=== PATIENT | female | born 1950 | race African-American/Black ===

== ENCOUNTER → 2016-11-21 | Outpatient (CLI) | payer OTHER ==
[~2016-11-21] MED LIST: ENAL20TA70; FURO40TA4; METF-316
[2016-11-21 12:57] LABS: Albumin 3.3 g/dL (3.4-5.0); BUN/Creatinine Ratio 8.2; Bilirubin, Total 0.2 mg/dL (0.2-1.0); Calcium 8.6 mg/dL (8.5-10.1); Potassium 4.6 mmol/L (3.5-5.1); Total Protein 8.5 g/dL (6.4-8.2)
== END | disposition home or self-care (01) ==
LOC: LAB 09:54
PROVIDERS: ATTEND Internal Medicine Cardiovascular Disease
DX: E78.00 Pure hypercholesterolemia, unspecified (principal); I10 Essential (primary) hypertension; E11.9 Type 2 diabetes mellitus without complications
CPT/HCPCS: 36415; 80053; 80061; 83036

== ENCOUNTER 2017-01-01 21:03 | Observation (INO) | payer MEDICARE, MEDICAID ==
[~2017-01-01] VITALS: Ht 170.2 cm; Wt 115.2 kg
[~2017-01-01 21:03] MED LIST changes: -METF-316; +METF-372
[2017-01-01 23:18] LABS: Basophils # (auto) 0.1 uL; Basophils % (auto) 0.8 % (0.0-2.0); CONDITION Y; DEFINITIVE SEE PRINTOUT; Eosinophils # (auto) 0.3 uL; Eosinophils % (auto) 2.6 % (0.0-7.0); Hematocrit 42.7 % (36.0-46.0); Hemoglobin 13.7 g/dL (12.2-16.2); Lymphocytes # (auto) 3.2 uL; Lymphocytes % (auto) 32.3 % (10.0-50.0); Mean Corpuscular Hemoglobin 25.7 pg (28.0-32.0); Mean Corpuscular Hgb Conc. 32.2 g/dL (32.0-36.0); Mean Corpuscular Volume 79.9 fL (80.0-100.0); Mean Platelet Volume 8.8 fL (7.4-10.4); Monocytes # (auto) 0.6 uL; Monocytes % (auto) 6.5 % (0.0-12.0); Neutrophils # (auto) 5.7 uL; Neutrophils % (auto) 57.8 % (37.0-80.0); Platelet Count (auto) 266 10^3/uL (140-450); Red Cell Distribution Width 16.3 % (11.6-16.0); White Blood Cell 9.8 10^3/uL (4.4-10.8)
[2017-01-01 23:18] LABS: Urine RBC None Seen /hpf (0 - 4)
[2017-01-01 23:32] LABS: Urine Bilirubin Negative (Negative); Urine Blood Negative /uL (Negative); Urine Color Yellow (Yellow); Urine Ketone Negative (Negative); Urine Mucus FEW (None Seen); Urine Nitrite Negative (Negative); Urine Squamous Epithelial Cell FEW /hpf (<5); Urine Urobilinogen Normal (Negative); Urine pH 5.5 (5.0-8.0)
[2017-01-01 23:33] LABS: INR 0.99 (0.9-1.15); Partial Thromboplastin Time 25.4 sec (22.64-33.71); Prothrombin Time 10.8 sec (9.37-12.3)
[2017-01-01 23:39] LABS: Albumin 3.1 g/dL (3.4-5.0); Anion Gap 9 (5-15); Aspartate Aminotransferase 14 U/L (15-37); BUN/Creatinine Ratio 13.6; Blood Urea Nitrogen 12 mg/dL (7-18); Calcium 8.7 mg/dL (8.5-10.1); Carbon Dioxide 24 mmol/L (21-32); Chloride 107 mmol/L (98-107); GFR African American 83 mL/min; GFR Non-African American 69 mL/min; Glucose 261 mg/dL (74-106); Magnesium 2.1 mg/dL (1.6-2.6); Potassium 4.5 mmol/L (3.5-5.1); Sodium 140 mmol/L (136-145)
[2017-01-01 23:48] LABS: Alkaline Phosphatase 122 U/L (45-117); Bilirubin, Total 0.2 mg/dL (0.2-1.0); Total Protein 7.9 g/dL (6.4-8.2)
[2017-01-02] MEDS ORDERED: SODIUM CHLORIDE 0.9% 1,000 ML IV ONE (05:15)
[2017-01-02 06:02] LABS: Urine Glucose 4+ mg/dL (Normal)
[2017-01-02] MEDS ORDERED: InsuLIN REG 1unit/0.01ml Soln (100units/ml) IV ONE (08:00)
[2017-01-02] MEDS ORDERED: KETOROLAC TROMETH 30 MG/ML 1ML VIAL IV ONE (08:00)
[2017-01-02 09:07] LABS: B-Type Natriuretic Peptide 38.93 pg/mL (0-100)
[2017-01-02 09:12] LABS: Temperature: 23.9 C (20.0-25.0)
[2017-01-02 11:09] VITALS: BP 121/49
== END 2017-01-02 12:24 | disposition home or self-care (01) | DRG 605 ==
LOC: ER 21:51 → OVERFLOW 01-02 08:06 → ER 01-02 12:12
PROVIDERS: ADMIT Emergency Medicine; ATTEND Emergency Medicine
DX: T14.8 Other injury of unspecified body region (principal); X58.XXXA Exposure to other specified factors, initial encounter; Y93.89 Activity, other specified; Y92.89 Other specified places as the place of occurrence of the external cause; Y99.8 Other external cause status; E11.65 Type 2 diabetes mellitus with hyperglycemia; J45.909 Unspecified asthma, uncomplicated; I10 Essential (primary) hypertension; Z82.49 Family history of ischemic heart disease and other diseases of the circulatory system
CPT/HCPCS: 36415; 80053; 81001; 82962; 83735; 83880; 84484; 85025; 85610; 85730; 93005; 96361; 96374; 96375; 99285; G0378; J1815; J1885; J7030

== ENCOUNTER → 2017-05-26 | Outpatient (CLI) | payer MEDICARE, MEDICAID ==
[~2017-05-26] MED LIST changes: +DIPYRIDAMOLE (5MG/ML) 10 ML VIAL IV ONE; +DIPYRIDAMOLE 60 MG in D5W 5% 50 ML IV SCH
== END | disposition home or self-care (01) ==
LOC: Rad HDHVI 08:51
PROVIDERS: ATTEND Internal Medicine Cardiovascular Disease
DX: I25.10 Atherosclerotic heart disease of native coronary artery without angina pectoris (principal); J44.9 Chronic obstructive pulmonary disease, unspecified; R07.89 Other chest pain; I10 Essential (primary) hypertension; M19.90 Unspecified osteoarthritis, unspecified site; E11.9 Type 2 diabetes mellitus without complications; M25.561 Pain in right knee; M25.562 Pain in left knee; J45.909 Unspecified asthma, uncomplicated; R63.8 Other symptoms and signs concerning food and fluid intake; F41.9 Anxiety disorder, unspecified; Z86.19 Personal history of other infectious and parasitic diseases; J32.9 Chronic sinusitis, unspecified
CPT/HCPCS: 78452; 93005; 93306; 96374; 96375; A9500; J1245

== ENCOUNTER → 2018-01-01 | Outpatient (CLI) | payer MEDICARE, MEDICAID ==
[~2018-01-01] MED LIST changes: -DIPYRIDAMOLE (5MG/ML) 10 ML VIAL IV ONE; -DIPYRIDAMOLE 60 MG in D5W 5% 50 ML IV SCH
[2018-01-01 16:13] LABS: Basophils # (auto) 0.1 uL; Basophils % (auto) 0.7 % (0.0-2.0); Eosinophils # (auto) 0.2 uL; Hemoglobin 13.8 g/dL (12.2-16.2); Mean Corpuscular Hgb Conc. 32.8 g/dL (32.0-36.0); Monocytes # (auto) 0.6 uL; Red Blood Cells 5.19 10^6/uL (4.0-5.20)
[2018-01-01 16:15] LABS: Eosinophils % (auto) 2.6 % (0.0-7.0); Hematocrit 42.1 % (36.0-46.0); Lymphocytes # (auto) 2.3 uL; Lymphocytes % (auto) 28.9 % (10.0-50.0); Mean Corpuscular Hemoglobin 26.6 pg (28.0-32.0); Monocytes % (auto) 7.3 % (0.0-12.0); Neutrophils # (auto) 4.9 uL; Neutrophils % (auto) 60.5 % (37.0-80.0); Nucleated Red Blood Cells % 0.6 %; Platelet Count (auto) 270 10^3/uL (140-450); White Blood Cell 8.1 10^3/uL (4.4-10.8)
[2018-01-01 16:17] LABS: BUN/Creatinine Ratio 7.6; Calcium 8.6 mg/dL (8.5-10.1); Potassium 3.7 mmol/L (3.5-5.1)
== END | disposition home or self-care (01) ==
LOC: LAB 11:28
PROVIDERS: ATTEND Internal Medicine
DX: I11.0 Hypertensive heart disease with heart failure (principal); I50.23 Acute on chronic systolic (congestive) heart failure; F41.9 Anxiety disorder, unspecified; I25.10 Atherosclerotic heart disease of native coronary artery without angina pectoris; J44.9 Chronic obstructive pulmonary disease, unspecified; E11.9 Type 2 diabetes mellitus without complications; E78.00 Pure hypercholesterolemia, unspecified; D64.9 Anemia, unspecified
CPT/HCPCS: 36415; 80048; 83880; 85025

== ENCOUNTER → 2018-07-09 | Outpatient (CLI) | payer MEDICARE, MEDICAID | END | disposition home or self-care (01) | LOC: Rad HDHVI 07:59 | PROVIDERS: ATTEND Internal Medicine Cardiovascular Disease | DX: I10 Essential (primary) hypertension (principal); J44.9 Chronic obstructive pulmonary disease, unspecified; E11.9 Type 2 diabetes mellitus without complications; E03.9 Hypothyroidism, unspecified | CPT/HCPCS: 93306 ==

== ENCOUNTER → 2018-07-14 | Outpatient (CLI) | payer MEDICARE, MEDICAID ==
[~2018-07-14] VITALS: Ht 170.2 cm; Wt 107.0 kg
[~2018-07-14] MED LIST changes: +ADENOSINE 90 MG in GIVE UN-DILUTED 0 ML IV ONE; +ADENOSINE 90 MG/30 ML INJ IV ONE
[2018-07-14 16:14] LABS: Albumin 3.2 g/dL (3.4-5.0); Calcium 8.7 mg/dL (8.5-10.1); Potassium 3.9 mmol/L (3.5-5.1)
[2018-07-14 16:19] LABS: BUN/Creatinine Ratio 14.7; Bilirubin, Total 0.2 mg/dL (0.2-1.0); Total Protein 8.3 g/dL (6.4-8.2)
[2018-07-14 16:22] LABS: Free T4 (Free Thyroxine) 1.04 ng/dL (0.89-1.76)
[2018-07-14 16:54] LABS: Eosinophils # (auto) 0.4 uL; Lymphocytes # (auto) 2.9 uL; Neutrophils # (auto) 5.3 uL; Nucleated Red Blood Cells % 0.1 %; Red Cell Distribution Width 16.2 % (11.8-14.3)
[2018-07-14 16:56] LABS: Basophils # (auto) 0.1 uL; Basophils % (auto) 0.7 % (0.0-2.0); Eosinophils % (auto) 4.3 % (0.0-7.0); Hematocrit 42.5 % (36.0-46.0); Hemoglobin 13.9 g/dL (12.2-16.2); Lymphocytes % (auto) 30.3 % (10.0-50.0); Mean Corpuscular Hemoglobin 26.4 pg (28.0-32.0); Mean Corpuscular Hgb Conc. 32.7 g/dL (32.0-36.0); Mean Corpuscular Volume 80.8 fL (80.0-100.0); Monocytes # (auto) 0.8 uL; Monocytes % (auto) 8.4 % (0.0-12.0); Neutrophils % (auto) 56.3 % (37.0-80.0); Platelet Count (auto) 244 10^3/uL (140-450); Red Blood Cells 5.25 10^6/uL (4.0-5.20); White Blood Cell 9.5 10^3/uL (4.4-10.8)
[2018-07-15 12:24] LABS: Urine Blood Negative /uL (Negative); Urine Specific Gravity 1.026 (1.001-1.035)
== END | disposition home or self-care (01) ==
LOC: Rad HDHVI 14:31
PROVIDERS: ATTEND Internal Medicine Cardiovascular Disease
DX: Z01.810 Encounter for preprocedural cardiovascular examination (principal); I10 Essential (primary) hypertension; J44.9 Chronic obstructive pulmonary disease, unspecified; E11.9 Type 2 diabetes mellitus without complications; E03.9 Hypothyroidism, unspecified; E55.9 Vitamin D deficiency, unspecified; D51.9 Vitamin B12 deficiency anemia, unspecified; N39.0 Urinary tract infection, site not specified; E66.9 Obesity, unspecified; Z86.74 Personal history of sudden cardiac arrest
CPT/HCPCS: 36415; 78452; 80053; 80061; 81003; 82306; 82607; 83036; 84439; 84443; 85025; 87086; 93005; 96374; 96375; A9500; J0153

== ENCOUNTER 2018-07-22 11:31 | Inpatient (IN) | payer MEDICARE, MEDICAID | END 2018-08-01 19:30 | disposition home or self-care (01) | LOC: CATH 11:31 → TELE-WESTW 07-31 11:43 | PROC: B2111ZZ Fluoroscopy of Multiple Coronary Arteries using Low Osmolar Contrast (ICD-10-PCS; principal; ~2018-07-22) | PROC: 02704ZZ Dilation of Coronary Artery, One Artery, Percutaneous Endoscopic Approach (ICD-10-PCS; ~2018-07-22) | PROC: 02C04ZZ Extirpation of Matter from Coronary Artery, One Artery, Percutaneous Endoscopic Approach (ICD-10-PCS; ~2018-07-22) | PROC: 4A023N6 Measurement of Cardiac Sampling and Pressure, Right Heart, Percutaneous Approach (ICD-10-PCS; ~2018-07-22) | DX: I25.10 Atherosclerotic heart disease of native coronary artery without angina pectoris (principal); E66.9 Obesity, unspecified; E78.5 Hyperlipidemia, unspecified; I10 Essential (primary) hypertension; J45.909 Unspecified asthma, uncomplicated ==

== ENCOUNTER → 2018-07-27 | Outpatient (CLI) | payer MEDICARE, MEDICAID ==
[~2018-07-27] MED LIST changes: -ADENOSINE 90 MG in GIVE UN-DILUTED 0 ML IV ONE; -ADENOSINE 90 MG/30 ML INJ IV ONE; +AMIT50TA3 PO; +AML5T PO; +DAPA1TAB4 PO; +DULA0.5I SC; +GLIP-116 PO; +MET5XLT PO; +NITR0.4S29 SL; +POTA8TAB2 PO; +SITA100T7 PO
[2018-07-27 10:25] VITALS: BP 126/64
--- NOTE | 2018-07-27 10:25 | NUR ---
PT. TO CLINIC FOR PRE OP DIAGNOSTICS PER DR. CASTILLO. ORDERS RECEIVED AND CARRIED OUT.
[2018-07-27 11:06] VITALS: BP 124/58
--- NOTE | 2018-07-27 11:06 | NUR ---
Pre-Op Discharge Summary: See e-MAR for any medications given for this visit. Pre-op orders received and carried out per MD of EKG, LABS and chest xrays. Patient given a copy of EKG with instructions to go to [facility] out patient for further follow up care.
[2018-07-27 12:23] LABS: Basophils # (auto) 0 uL; Basophils % (auto) 0.6 % (0.0-2.0); Lymphocytes # (auto) 2.5 uL; Mean Corpuscular Hgb Conc. 32.2 g/dL (32.0-36.0); Mean Corpuscular Volume 80.7 fL (80.0-100.0); Neutrophils # (auto) 4.1 uL; White Blood Cell 7.7 10^3/uL (4.4-10.8)
[2018-07-27 12:30] LABS: Eosinophils # (auto) 0.5 uL; Eosinophils % (auto) 5.9 % (0.0-7.0); Hematocrit 42.8 % (36.0-46.0); Hemoglobin 13.8 g/dL (12.2-16.2); Lymphocytes % (auto) 32.4 % (10.0-50.0); Monocytes # (auto) 0.6 uL; Monocytes % (auto) 7.6 % (0.0-12.0); Neutrophils % (auto) 53.5 % (37.0-80.0); Nucleated Red Blood Cells % 0.2 %; Platelet Count (auto) 243 10^3/uL (140-450); Red Blood Cells 5.31 10^6/uL (4.0-5.20); Red Cell Distribution Width 16.2 % (11.8-14.3)
[2018-07-27 12:38] LABS: INR 0.95 (0.9-1.15); Partial Thromboplastin Time 26.8 sec (23.78-33.04); Prothrombin Time 10.2 sec (9.27-12.13)
[2018-07-27 13:04] LABS: Anion Gap 4 (5-15); Blood Urea Nitrogen 12 mg/dL (7-18); Calcium 8.8 mg/dL (8.5-10.1); Carbon Dioxide 28 mmol/L (21-32); Chloride 108 mmol/L (98-107); Glucose 93 mg/dL (74-106); Potassium 4.4 mmol/L (3.5-5.1); Sodium 140 mmol/L (136-145)
[2018-07-27 13:07] LABS: BUN/Creatinine Ratio 11.9; GFR African American > 60 mL/min; GFR Non-African American 58 mL/min
== END | disposition home or self-care (01) ==
LOC: Rad HDHVI 10:05
PROVIDERS: ATTEND Internal Medicine Cardiovascular Disease
DX: Z01.812 Encounter for preprocedural laboratory examination (principal); I10 Essential (primary) hypertension; D64.9 Anemia, unspecified; R79.1 Abnormal coagulation profile; I25.10 Atherosclerotic heart disease of native coronary artery without angina pectoris; I42.9 Cardiomyopathy, unspecified
CPT/HCPCS: 36415; 71046; 80048; 85025; 85610; 85730; 93005; G0463

== ENCOUNTER → 2018-09-09 | Outpatient (CLI) | payer MEDICARE, MEDICAID ==
[~2018-09-09] MED LIST changes: -METF-372
== END | disposition home or self-care (01) ==
LOC: Rad HDHVI 08:00
PROVIDERS: ATTEND Internal Medicine Cardiovascular Disease
DX: I20.0 Unstable angina (principal); I10 Essential (primary) hypertension; E78.5 Hyperlipidemia, unspecified
CPT/HCPCS: 93306

== ENCOUNTER → 2019-01-26 | Outpatient (CLI) | payer MEDICARE, MEDICAID ==
[~2019-01-26] VITALS: Ht 170.2 cm; Wt 110.2 kg
[~2019-01-26] MED LIST changes: +ADENOSINE 90 MG/30 ML INJ IV ONE; +ADENOSINE 93 MG in GIVE UN-DILUTED 0 ML IV ONE; +ENAL20TA; -ENAL20TA70; -GLIP-116 PO; +GLIP10TA9 PO; -MET5XLT PO; +METO-6 PO
== END | disposition home or self-care (01) ==
LOC: Rad HDHVI 07:58
PROVIDERS: ATTEND Internal Medicine Cardiovascular Disease
DX: I10 Essential (primary) hypertension (principal); E11.9 Type 2 diabetes mellitus without complications; M79.602 Pain in left arm
CPT/HCPCS: 78452; 93005; 96374; 96375; A9500; J0153

== ENCOUNTER → 2019-03-11 | Outpatient (CLI) | payer MEDICARE, MEDICAID ==
[~2019-03-11] MED LIST changes: -ADENOSINE 90 MG/30 ML INJ IV ONE; -ADENOSINE 93 MG in GIVE UN-DILUTED 0 ML IV ONE
[2019-03-11 16:01] LABS: Eosinophils # (auto) 0.2 uL; Lymphocytes # (auto) 2.9 uL; Mean Corpuscular Hgb Conc. 32.4 g/dL (32.0-36.0); Monocytes # (auto) 0.7 uL; Neutrophils # (auto) 3.9 uL; Neutrophils % (auto) 49.9 % (37.0-80.0); Nucleated Red Blood Cells % 0.1 %
[2019-03-11 16:04] LABS: Basophils # (auto) 0.1 uL; Basophils % (auto) 0.7 % (0.0-2.0); Eosinophils % (auto) 3.2 % (0.0-7.0); Hematocrit 43.1 % (36.0-46.0); Lymphocytes % (auto) 37.6 % (10.0-50.0); Mean Corpuscular Hemoglobin 25.9 pg (28.0-32.0); Monocytes % (auto) 8.6 % (0.0-12.0); Platelet Count (auto) 270 10^3/uL (140-450); Red Blood Cells 5.39 10^6/uL (4.0-5.20); Red Cell Distribution Width 16.3 % (11.8-14.3); White Blood Cell 7.7 10^3/uL (4.4-10.8)
[2019-03-11 16:11] LABS: Albumin 3.2 g/dL (3.4-5.0); BUN/Creatinine Ratio 10.6; Calcium 8.6 mg/dL (8.5-10.1); Potassium 3.7 mmol/L (3.5-5.1)
[2019-03-11 16:14] LABS: Bilirubin, Total 0.2 mg/dL (0.2-1.0); Total Protein 8.2 g/dL (6.4-8.2)
== END | disposition home or self-care (01) ==
LOC: LAB 11:46
PROVIDERS: ATTEND Internal Medicine Cardiovascular Disease
DX: E11.65 Type 2 diabetes mellitus with hyperglycemia (principal); D64.9 Anemia, unspecified
CPT/HCPCS: 36415; 80053; 83036; 85025

== ENCOUNTER → 2019-03-29 | Outpatient (CLI) | payer MEDICARE, MEDICAID | END | disposition home or self-care (01) | LOC: Rad HDHVI 09:59 | PROVIDERS: ATTEND Internal Medicine Cardiovascular Disease | DX: R00.2 Palpitations (principal); R07.89 Other chest pain | CPT/HCPCS: 93880 ==

== ENCOUNTER → 2019-08-31 | Outpatient (CLI) | payer MEDICARE, MEDICAID ==
[2019-08-31 12:12] LABS: Basophils # (auto) 0.1 uL; Monocytes # (auto) 0.8 uL; Nucleated Red Blood Cells % 0.1 %; Red Blood Cells 4.89 10^6/uL (4.0-5.20); Red Cell Distribution Width 16.2 % (11.8-14.3)
[2019-08-31 12:15] LABS: Basophils % (auto) 0.6 % (0.0-2.0); Eosinophils # (auto) 0.3 uL; Eosinophils % (auto) 2.9 % (0.0-7.0); Hematocrit 39.4 % (36.0-46.0); Hemoglobin 12.6 g/dL (12.2-16.2); Lymphocytes # (auto) 2.6 uL; Lymphocytes % (auto) 28.1 % (10.0-50.0); Mean Corpuscular Hemoglobin 25.8 pg (28.0-32.0); Mean Corpuscular Volume 80.5 fL (80.0-100.0); Monocytes % (auto) 8.5 % (0.0-12.0); Neutrophils # (auto) 5.6 uL; Neutrophils % (auto) 59.9 % (37.0-80.0); Platelet Count (auto) 241 10^3/uL (140-450); White Blood Cell 9.3 10^3/uL (4.4-10.8)
[2019-08-31 13:00] LABS: Potassium 3.7 mmol/L (3.5-5.1)
[2019-08-31 13:14] LABS: Albumin 2.8 g/dL (3.4-5.0); BUN/Creatinine Ratio 11.4; Bilirubin, Total 0.2 mg/dL (0.2-1.0); Calcium 8.9 mg/dL (8.5-10.1); Total Protein 7.9 g/dL (6.4-8.2)
== END | disposition home or self-care (01) ==
LOC: LAB 08:22
PROVIDERS: ATTEND Internal Medicine Cardiovascular Disease
DX: E11.9 Type 2 diabetes mellitus without complications (principal); Z79.899 Other long term (current) drug therapy
CPT/HCPCS: 36415; 80053; 83036; 85025

== ENCOUNTER → 2020-04-26 | Outpatient (CLI) | payer MEDICARE, MEDICAID ==
[~2020-04-26] MED LIST changes: -ENAL20TA; +ENAL20TA8
== END | disposition home or self-care (01) ==
LOC: Rad HDHVI 11:40
PROVIDERS: ATTEND Internal Medicine Cardiovascular Disease
DX: M17.0 Bilateral primary osteoarthritis of knee (principal); R52 Pain, unspecified
CPT/HCPCS: 73562

== ENCOUNTER → 2020-04-28 | Outpatient (CLI) | payer MEDICARE, MEDICAID | END | disposition home or self-care (01) | LOC: Rad HDHVI 14:54 | PROVIDERS: ATTEND Internal Medicine Cardiovascular Disease | DX: R07.89 Other chest pain (principal); R00.2 Palpitations | CPT/HCPCS: 93306 ==

== ENCOUNTER → 2020-05-02 | Outpatient (CLI) | payer MEDICARE, MEDICAID ==
[~2020-05-02] VITALS: Ht 167.6 cm; Wt 119.3 kg
[~2020-05-02] MED LIST changes: +ADENOSINE 100 MG in GIVE UN-DILUTED 0 ML IV ONE; +ADENOSINE 90 MG/30 ML INJ IV ONE
== END | disposition home or self-care (01) ==
LOC: Rad HDHVI 08:28
PROVIDERS: ATTEND Internal Medicine Cardiovascular Disease
DX: I11.0 Hypertensive heart disease with heart failure (principal); I50.23 Acute on chronic systolic (congestive) heart failure; I25.10 Atherosclerotic heart disease of native coronary artery without angina pectoris; E11.9 Type 2 diabetes mellitus without complications; E78.5 Hyperlipidemia, unspecified; J44.9 Chronic obstructive pulmonary disease, unspecified; R07.9 Chest pain, unspecified; Z98.61 Coronary angioplasty status; Z82.49 Family history of ischemic heart disease and other diseases of the circulatory system
CPT/HCPCS: 78452; 93005; 96374; 96375; A9500; J0153

== ENCOUNTER → 2020-05-04 | Outpatient (CLI) | payer MEDICARE, MEDICAID ==
[~2020-05-04] MED LIST changes: -ADENOSINE 100 MG in GIVE UN-DILUTED 0 ML IV ONE; -ADENOSINE 90 MG/30 ML INJ IV ONE
[2020-05-04 11:43] LABS: Basophils # (auto) 0.1 10 ^3/uL (0-0.2); Eosinophils # (auto) 0.3 10 ^3/uL (0-0.8); Hemoglobin 13.6 g/dL (12.2-16.2); Lymphocytes # (auto) 2.4 10 ^3/uL (0.4-5.4); Monocytes # (auto) 0.8 10 ^3/uL (0-1.3); Nucleated Red Blood Cells % 0.1 %; Red Cell Distribution Width 15.9 % (11.8-14.3)
[2020-05-04 11:46] LABS: Basophils % (auto) 0.7 % (0.0-2.0); Eosinophils % (auto) 2.9 % (0.0-7.0); Hematocrit 41.6 % (36.0-46.0); Lymphocytes % (auto) 23.2 % (10.0-50.0); Mean Corpuscular Hemoglobin 26.7 pg (28.0-32.0); Mean Corpuscular Hgb Conc. 32.8 g/dL (32.0-36.0); Mean Corpuscular Volume 81.3 fL (80.0-100.0); Monocytes % (auto) 7.8 % (0.0-12.0); Neutrophils # (auto) 6.8 10 ^3/uL (1.6-8.6); Neutrophils % (auto) 65.4 % (37.0-80.0); Platelet Count (auto) 251 10^3/uL (140-450); Red Blood Cells 5.11 10^6/uL (4.0-5.20); White Blood Cell 10.4 10^3/uL (4.4-10.8)
[2020-05-04 11:48] LABS: Albumin 3.1 g/dL (3.4-5.0)
[2020-05-04 11:51] LABS: Free T4 (Free Thyroxine) 0.91 ng/dL (0.89-1.76)
[2020-05-04 11:55] LABS: Bilirubin, Total 0.3 mg/dL (0.2-1.0); Calcium 8.7 mg/dL (8.5-10.1); Total Protein 8.3 g/dL (6.4-8.2)
== END | disposition home or self-care (01) ==
LOC: LAB 08:24
PROVIDERS: ATTEND Internal Medicine Cardiovascular Disease
DX: I10 Essential (primary) hypertension (principal); E11.9 Type 2 diabetes mellitus without complications; D51.3 Other dietary vitamin B12 deficiency anemia; E55.9 Vitamin D deficiency, unspecified; D64.9 Anemia, unspecified; R00.2 Palpitations; R53.1 Weakness; R30.0 Dysuria
CPT/HCPCS: 36415; 80053; 80061; 82306; 82607; 83036; 84439; 84443; 85025

== ENCOUNTER → 2020-05-17 | Outpatient (CLI) | payer MEDICARE, MEDICAID ==
[~2020-05-17] MED LIST changes: +READI-CAT 2 (BARIUM SULF)(VANILLA SMOOTHIE) 450ML ONE; +SODIUM CHLORIDE 0.9% 500 ML IV ONE
[2020-05-17 09:57] VITALS: BP 137/64
--- NOTE | 2020-05-17 09:57 | NUR ---
CLINIC PT ARRIVED TO CLINIC FROM BACK OFFICE WITH ORDERS FOR IV HYDRATION AND LABS. A/OX4, AMBULATORY, BREATHING IS EVEN AND UNLABORED.
--- NOTE | 2020-05-17 10:14 | NUR ---
IV insertion IV access obtained, via clean sterile technique by inserting 20 gauge catheter at after 1 attempt(s). IV secured properly. No trauma to site. Patient tolerated procedure well. LABS DRAWN AND SENT. NOTE INSERTED BY KIRBY LLANES
[2020-05-17 11:05] LABS: Basophils # (auto) 0.1 10 ^3/uL (0-0.2); Lymphocytes # (auto) 2.7 10 ^3/uL (0.4-5.4); Monocytes # (auto) 0.7 10 ^3/uL (0-1.3); Nucleated Red Blood Cells % 0.1 %; Red Cell Distribution Width 15.6 % (11.8-14.3)
[2020-05-17 11:07] LABS: Basophils % (auto) 0.6 % (0.0-2.0); Eosinophils # (auto) 0.4 10 ^3/uL (0-0.8); Eosinophils % (auto) 4.8 % (0.0-7.0); Hemoglobin 14.2 g/dL (12.2-16.2); Lymphocytes % (auto) 32.1 % (10.0-50.0); Mean Corpuscular Hemoglobin 25.9 pg (28.0-32.0); Mean Corpuscular Hgb Conc. 32.2 g/dL (32.0-36.0); Mean Corpuscular Volume 80.4 fL (80.0-100.0); Monocytes % (auto) 8.1 % (0.0-12.0); Neutrophils # (auto) 4.5 10 ^3/uL (1.6-8.6); Neutrophils % (auto) 54.4 % (37.0-80.0); Platelet Count (auto) 258 10^3/uL (140-450); Red Blood Cells 5.47 10^6/uL (4.0-5.20); White Blood Cell 8.3 10^3/uL (4.4-10.8)
[2020-05-17 11:19] LABS: BUN/Creatinine Ratio 15.7; Magnesium 2.4 mg/dL (1.6-2.6); Potassium 3.9 mmol/L (3.5-5.1)
--- NOTE | 2020-05-17 12:38 | NUR ---
IV removal IV DC'd with sterile technique, catheter fully intact. Pressure dressing applied to site. Patient tolerated procedure well. Discharged with aftercare instructions per MD. NOTE: REMOVED BY AROLDO LLANES
[2020-05-17 12:44] VITALS: BP 132/42
--- NOTE | 2020-05-17 12:44 | NUR ---
Discharge Instructions See e-MAR for any mediations given with this visit. Patient education given on disease process. Patient verbalized understanding. Previous labs reviewed. Patient discharged in stable condition with after care instructions and follow up appointment. NOTE NS IV [id number] ADMIN BY KIRBY LLANES
== END | disposition home or self-care (01) ==
LOC: Rad HDHVI 10:03
PROVIDERS: ATTEND Internal Medicine Cardiovascular Disease
DX: E86.0 Dehydration (principal); I11.0 Hypertensive heart disease with heart failure; I50.23 Acute on chronic systolic (congestive) heart failure; I25.10 Atherosclerotic heart disease of native coronary artery without angina pectoris; D64.9 Anemia, unspecified; A09 Infectious gastroenteritis and colitis, unspecified; E11.9 Type 2 diabetes mellitus without complications; J44.9 Chronic obstructive pulmonary disease, unspecified; E78.5 Hyperlipidemia, unspecified
CPT/HCPCS: 36415; 74176; 80048; 83735; 85025; 96360; 96361; G0463; J7040

== ENCOUNTER → 2020-06-21 | Outpatient (CLI) | payer MEDICARE, MEDICAID ==
[~2020-06-21] MED LIST changes: -READI-CAT 2 (BARIUM SULF)(VANILLA SMOOTHIE) 450ML ONE; -SODIUM CHLORIDE 0.9% 500 ML IV ONE
== END | disposition home or self-care (01) ==
LOC: Rad HDHVI 10:47
PROVIDERS: ATTEND Internal Medicine Cardiovascular Disease
DX: R05 Cough (principal)
CPT/HCPCS: 71046

== ENCOUNTER → 2021-01-17 | Outpatient (CLI) | payer MEDICARE, MEDICAID ==
[2021-01-17 11:29] LABS: Eosinophils # (auto) 0.2 10 ^3/uL (0-0.8); Mean Corpuscular Hemoglobin 26.6 pg (28.0-32.0); Monocytes # (auto) 0.8 10 ^3/uL (0-1.3); Neutrophils # (auto) 6.8 10 ^3/uL (1.6-8.6); Red Cell Distribution Width 15.9 % (11.8-14.3)
[2021-01-17 11:33] LABS: Basophils # (auto) 0.1 10 ^3/uL (0-0.2); Basophils % (auto) 0.7 % (0.0-2.0); Eosinophils % (auto) 2.1 % (0.0-7.0); Hematocrit 43.6 % (36.0-46.0); Hemoglobin 14.3 g/dL (12.2-16.2); Lymphocytes # (auto) 2.8 10 ^3/uL (0.4-5.4); Lymphocytes % (auto) 26.3 % (10.0-50.0); Mean Corpuscular Hgb Conc. 32.9 g/dL (32.0-36.0); Mean Corpuscular Volume 80.9 fL (80.0-100.0); Monocytes % (auto) 7.2 % (0.0-12.0); Neutrophils % (auto) 63.7 % (37.0-80.0); Red Blood Cells 5.38 10^6/uL (4.0-5.20); White Blood Cell 10.7 10^3/uL (4.4-10.8)
[2021-01-17 11:57] LABS: Potassium 4.1 mmol/L (3.5-5.1)
[2021-01-17 12:04] LABS: Urine Blood TRACE /uL (Negative); Urine Specific Gravity 1.026 (1.001-1.035)
[2021-01-17 12:06] LABS: Albumin 3.1 g/dL (3.4-5.0); BUN/Creatinine Ratio 12.7; Bilirubin, Direct 0.1 mg/dL (0-0.2); Bilirubin, Total 0.3 mg/dL (0.2-1.0); Calcium 8.8 mg/dL (8.5-10.1); Total Protein 8.9 g/dL (6.4-8.2)
== END | disposition home or self-care (01) ==
LOC: LAB 10:17
PROVIDERS: ATTEND Internal Medicine Cardiovascular Disease
DX: D51.3 Other dietary vitamin B12 deficiency anemia (principal); I10 Essential (primary) hypertension; E11.9 Type 2 diabetes mellitus without complications; E55.9 Vitamin D deficiency, unspecified; D64.9 Anemia, unspecified; R00.2 Palpitations; R53.1 Weakness; R30.0 Dysuria
CPT/HCPCS: 36415; 80048; 80061; 80076; 81003; 82306; 83036; 84443; 85025

== ENCOUNTER → 2021-02-02 | Outpatient (CLI) | payer MEDICARE, MEDICAID | END | disposition home or self-care (01) | LOC: Rad HDHVI 09:00 | PROVIDERS: ATTEND Internal Medicine Cardiovascular Disease | DX: M47.817 Spondylosis without myelopathy or radiculopathy, lumbosacral region (principal); M51.26 Other intervertebral disc displacement, lumbar region; M48.07 Spinal stenosis, lumbosacral region; M48.061 Spinal stenosis, lumbar region without neurogenic claudication; J34.2 Deviated nasal septum; R51.9 Headache, unspecified | CPT/HCPCS: 70486; 72131 ==

== ENCOUNTER → 2021-02-12 | Outpatient (CLI) | payer MEDICARE, MEDICAID | END | disposition home or self-care (01) | LOC: Rad HDHVI 13:30 | PROVIDERS: ATTEND Internal Medicine Cardiovascular Disease | DX: S52.611A Displaced fracture of right ulna styloid process, initial encounter for closed fracture (principal); S52.591A Other fractures of lower end of right radius, initial encounter for closed fracture; S52.511A Displaced fracture of right radial styloid process, initial encounter for closed fracture; M19.031 Primary osteoarthritis, right wrist; M79.89 Other specified soft tissue disorders; X58.XXXA Exposure to other specified factors, initial encounter; Y93.89 Activity, other specified; Y92.89 Other specified places as the place of occurrence of the external cause; Y99.8 Other external cause status | CPT/HCPCS: 73110 ==

== ENCOUNTER → 2021-02-20 | Outpatient (CLI) | payer MEDICARE, MEDICAID ==
[~2021-02-20] MED LIST changes: +CLOP75TA28 PO; +DexAMETHasone SOD PHOS 10MG/1ML VIAL INJ ONE; +GLYCOPYRROLATE 0.2 MG/ML 1ML VIAL ONE; +HYDROmorphone HCL 2 MG/ML VL ONE; +IBUP100S11 PO; +KETOROLAC TROMETH 30 MG/ML 1ML VIAL ONE; +LIDOCAINE 2% (LOCAL ANESTH.) PF 5ml SDV ONE; +MIDAZOLAM HCL 2MG/2ML 2ml VIAL (1mg/ml) ONE; +ONDANSETRON HCL 4 MG/2 ML VIAL ONE; +PROPOFOL 10 MG/ML 20 ML IV ONE; +ROCURONIUM 10MG/ML 10ML VIAL IV ONE; +ePHEDrine SULFATE 50 MG/ML AMP ONE; +fentaNYL CITRATE 100 MCG/2 ML VL ONE
[2021-02-20 11:38] LABS: Basophils # (auto) 0.1 10 ^3/uL (0-0.2); Basophils % (auto) 0.6 % (0.0-2.0); Eosinophils # (auto) 0.2 10 ^3/uL (0-0.8); Mean Corpuscular Volume 81.7 fL (80.0-100.0); Monocytes # (auto) 0.9 10 ^3/uL (0-1.3)
[2021-02-20 11:39] LABS: Urine Blood Negative /uL (Negative); Urine Specific Gravity 1.037 (1.001-1.035)
[2021-02-20 11:45] LABS: Eosinophils % (auto) 1.3 % (0.0-7.0); Hematocrit 43.2 % (36.0-46.0); Hemoglobin 13.9 g/dL (12.2-16.2); Lymphocytes # (auto) 3.3 10 ^3/uL (0.4-5.4); Lymphocytes % (auto) 26.3 % (10.0-50.0); Mean Corpuscular Hemoglobin 26.3 pg (28.0-32.0); Mean Corpuscular Hgb Conc. 32.1 g/dL (32.0-36.0); Monocytes % (auto) 7.3 % (0.0-12.0); Neutrophils % (auto) 64.5 % (37.0-80.0); Red Blood Cells 5.29 10^6/uL (4.0-5.20); Red Cell Distribution Width 15.9 % (11.8-14.3); White Blood Cell 12.4 10^3/uL (4.4-10.8)
[2021-02-20 12:12] LABS: Potassium 4.2 mmol/L (3.5-5.1)
[2021-02-20 12:33] LABS: Bilirubin, Total 0.3 mg/dL (0.2-1.0); Calcium 9.1 mg/dL (8.5-10.1); Total Protein 8.8 g/dL (6.4-8.2)
== END | disposition home or self-care (01) ==
LOC: Rad HDHVI 07:59
PROVIDERS: ATTEND Internal Medicine Cardiovascular Disease
DX: Z01.818 Encounter for other preprocedural examination (principal); S52.571A Other intraarticular fracture of lower end of right radius, initial encounter for closed fracture; M47.814 Spondylosis without myelopathy or radiculopathy, thoracic region; X58.XXXA Exposure to other specified factors, initial encounter; Y93.89 Activity, other specified; Y92.89 Other specified places as the place of occurrence of the external cause; Y99.8 Other external cause status
CPT/HCPCS: 36415; 71046; 80053; 81003; 85025

== ENCOUNTER 2021-02-22 06:30 | Day surgery (SDC) | payer MEDICARE, MEDICAID ==
[~2021-02-22] VITALS: Ht 167.6 cm; Wt 123.4 kg
[~2021-02-22 06:30] MED LIST changes: -DexAMETHasone SOD PHOS 10MG/1ML VIAL INJ ONE; -GLYCOPYRROLATE 0.2 MG/ML 1ML VIAL ONE; -HYDROmorphone HCL 2 MG/ML VL ONE; -KETOROLAC TROMETH 30 MG/ML 1ML VIAL ONE; -LIDOCAINE 2% (LOCAL ANESTH.) PF 5ml SDV ONE; -MIDAZOLAM HCL 2MG/2ML 2ml VIAL (1mg/ml) ONE; -ONDANSETRON HCL 4 MG/2 ML VIAL ONE; -PROPOFOL 10 MG/ML 20 ML IV ONE; -ROCURONIUM 10MG/ML 10ML VIAL IV ONE; -ePHEDrine SULFATE 50 MG/ML AMP ONE; -fentaNYL CITRATE 100 MCG/2 ML VL ONE
[2021-02-22] MEDS ORDERED: ceFAZolin 1GM/50ML 100 ML IV ONE (07:00)
[2021-02-22] MEDS ORDERED: EPINEPHrine HCL 1 MG/1 ML AMP ONE (07:21)
[2021-02-22] MEDS ORDERED: BUPIVACAINE 0.25% INJ 50ML VIAL ONE (07:21)
[2021-02-22] MEDS ORDERED: SUCCINYLCHOLINE CHLORIDE 20 MG/ML 10ML VIAL IV ONE (07:23)
[2021-02-22] MEDS ORDERED: FAMOTIDINE (10MG/ML) 2ML VL IV ONE (07:28)
[2021-02-22] MEDS ORDERED: ACCU-CHEK COMFORT CURVE STRIP VI ONE (10:00)
[2021-02-22] MEDS ORDERED: ONDANSETRON HCL 4 MG/2 ML VIAL IV PRN (10:00)
[2021-02-22] MEDS ORDERED: HYDROmorphone HCL 2 MG/ML VL IV PRN (10:00)
[2021-02-22 11:30] VITALS: BP 173/56
== END 2021-02-22 11:50 | disposition home or self-care (01) ==
LOC: SUR 06:30
PROVIDERS: ATTEND Orthopaedic Surgery
DX: S52.501A Unspecified fracture of the lower end of right radius, initial encounter for closed fracture (principal); I25.10 Atherosclerotic heart disease of native coronary artery without angina pectoris; E11.9 Type 2 diabetes mellitus without complications; I10 Essential (primary) hypertension; J45.909 Unspecified asthma, uncomplicated; K21.9 Gastro-esophageal reflux disease without esophagitis; E03.9 Hypothyroidism, unspecified; Z80.3 Family history of malignant neoplasm of breast; Z20.822 Contact with and (suspected) exposure to COVID-19; Z68.41 Body mass index [BMI] 40.0-44.9, adult; Z88.5 Allergy status to narcotic agent; Z98.890 Other specified postprocedural states; Z88.8 Allergy status to other drugs, medicaments and biological substances; Z79.899 Other long term (current) drug therapy; X58.XXXA Exposure to other specified factors, initial encounter; Y93.89 Activity, other specified; Y92.89 Other specified places as the place of occurrence of the external cause; Y99.8 Other external cause status
CPT/HCPCS: 25609; 73100; 82962; C1713; J0171; J0330; J0690; J1100; J1170; J1885; J2001; J2250; J2405; J2704; J3010; J3490; U0003; 76000

== ENCOUNTER → 2021-08-28 | Outpatient (CLI) | payer MEDICARE, MEDICAID ==
[~2021-08-28] MED LIST changes: -AMIT50TA3 PO; +AMIT50TA5 PO
== END | disposition home or self-care (01) ==
LOC: Rad HDHVI 15:05
PROVIDERS: ATTEND Internal Medicine Cardiovascular Disease
DX: R06.02 Shortness of breath (principal); M47.814 Spondylosis without myelopathy or radiculopathy, thoracic region
CPT/HCPCS: 71046

== ENCOUNTER → 2022-02-27 | Outpatient (CLI) | payer MEDICARE, MEDICAID ==
[2022-02-27 12:02] LABS: BUN/Creatinine Ratio 10.5; Calcium 8.7 mg/dL (8.5-10.1); Potassium 3.5 mmol/L (3.5-5.1)
[2022-02-27 12:05] LABS: Basophils # (auto) 0.1 10 ^3/uL (0-0.2); White Blood Cell 8.1 10^3/uL (4.4-10.8)
[2022-02-27 12:07] LABS: Basophils % (auto) 0.6 % (0.0-2.0); Eosinophils # (auto) 0.2 10 ^3/uL (0-0.8); Eosinophils % (auto) 2.9 % (0.0-7.0); Hematocrit 41.8 % (36.0-46.0); Lymphocytes # (auto) 2.6 10 ^3/uL (0.4-5.4); Lymphocytes % (auto) 32.5 % (10.0-50.0); Mean Corpuscular Hemoglobin 25.3 pg (28.0-32.0); Mean Corpuscular Hgb Conc. 31.1 g/dL (32.0-36.0); Mean Corpuscular Volume 81.3 fL (80.0-100.0); Monocytes # (auto) 0.7 10 ^3/uL (0-1.3); Monocytes % (auto) 8.4 % (0.0-12.0); Neutrophils # (auto) 4.5 10 ^3/uL (1.6-8.6); Neutrophils % (auto) 55.6 % (37.0-80.0); Red Blood Cells 5.15 10^6/uL (4.0-5.20); Red Cell Distribution Width 16.4 % (11.8-14.3)
== END | disposition home or self-care (01) ==
LOC: LAB 08:15
PROVIDERS: ATTEND Internal Medicine Cardiovascular Disease
DX: I10 Essential (primary) hypertension (principal); D64.9 Anemia, unspecified
CPT/HCPCS: 36415; 80048; 85025

== ENCOUNTER 2022-08-09 10:30 | Inpatient (IN) | payer MEDICARE, MEDICAID ==
[~2022-08-09] VITALS: Ht 167.6 cm; Wt 118.2 kg
[2022-08-09 11:40] LABS: Basophils # (auto) 0.1 10 ^3/uL (0-0.2); Eosinophils # (auto) 0.2 10 ^3/uL (0-0.8); Eosinophils % (auto) 1.5 % (0.0-7.0); Hemoglobin 14.2 g/dL (12.2-16.2); Lymphocytes # (auto) 2.8 10 ^3/uL (0.4-5.4); Monocytes # (auto) 1.3 10 ^3/uL (0-1.3); Nucleated Red Blood Cells % 0.1 %
[2022-08-09 11:42] LABS: Basophils % (auto) 0.5 % (0.0-2.0); Hematocrit 43.5 % (36.0-46.0); Lymphocytes % (auto) 19.3 % (10.0-50.0); Mean Corpuscular Hemoglobin 26.3 pg (28.0-32.0); Mean Corpuscular Hgb Conc. 32.6 g/dL (32.0-36.0); Mean Corpuscular Volume 80.5 fL (80.0-100.0); Monocytes % (auto) 9.1 % (0.0-12.0); Neutrophils % (auto) 69.6 % (37.0-80.0); Red Cell Distribution Width 15.7 % (11.8-14.3); White Blood Cell 14.4 10^3/uL (4.4-10.8)
[2022-08-09 11:46] LABS: Urine Bacteria MANY /hpf (None Seen); Urine Blood 2+ /uL (Negative); Urine Hyaline Cast MOD /lpf (0 - 2); Urine Mucus FEW (None Seen); Urine Specific Gravity 1.017 (1.001-1.035); Urine WBC 1066 /hpf (0 - 5); Urine WBC Clumps PRESENT /hpf (None Seen)
[2022-08-09 11:56] LABS: INR 1.07 (0.9-1.15); Partial Thromboplastin Time 28.8 sec (24.6-33.4)
[2022-08-09 11:57] LABS: Albumin 2.8 g/dL (3.4-5.0); BUN/Creatinine Ratio 9.3; Calcium 8.5 mg/dL (8.5-10.1); Potassium 3.8 mmol/L (3.5-5.1)
[2022-08-09 11:59] LABS: Bilirubin, Total 0.5 mg/dL (0.2-1.0); Total Protein 7.6 g/dL (6.4-8.2)
[2022-08-09] MEDS ORDERED: PANTOPRAZOLE 40 MG/10 ML VIAL INJ IV ONE (15:30)
[2022-08-09] MEDS ORDERED: metroNIDAZOLE 500MG/100ML 100 ML IV ONE (15:30)
[2022-08-09] MEDS ORDERED: cefTRIAXone 1GM/50ML D5W 50 ML IV ONE (15:30)
[2022-08-09] MEDS ORDERED: PANTOPRAZOLE 40mg/50ML NS AE 50 ML IV ONE (15:30)
[2022-08-09] MEDS ORDERED: SODIUM CHLORIDE 0.9% 1,000 ML IV SCH (18:00)
[2022-08-09] MEDS ORDERED: DEXTROSE (50%) 50ML SYRG IV PRN (18:00)
[2022-08-09] MEDS: PANTOPRAZOLE 40mg/50ML NS AE 50 ML IV SCH ×2 (18:40→23:30)
[2022-08-09 18:47] LABS: Cholesterol 131 mg/dL (< 200)
[2022-08-09 18:50] LABS: HDL Cholesterol 33 mg/dL (40-59); LDL Cholesterol 86 mg/dL (< 100); Triglycerides 99 mg/dL (< 150)
[2022-08-09 22:00] VITALS: BP 124/45
[2022-08-09] MEDS: ACCU-CHEK COMFORT CURVE STRIP VI SCH (22:00)
[2022-08-09] MEDS: InsuLIN REG 1unit/0.01ml Soln (100units/ml) SC SCH (22:00)
[2022-08-09] MEDS: metroNIDAZOLE 500MG/100ML 100 ML IV SCH (22:06)
[2022-08-09 23:13] VITALS: BP 146/62
[2022-08-09] MEDS ORDERED: LINA5TAB PO (23:28)
[2022-08-10] MEDS: PANTOPRAZOLE 40mg/50ML NS AE 50 ML IV SCH ×4 (04:06→19:15)
[2022-08-10 05:00] VITALS: BP 133/64
[2022-08-10] MEDS: metroNIDAZOLE 500MG/100ML 100 ML IV SCH ×3 (05:45→22:19)
[2022-08-10] MEDS: ACCU-CHEK COMFORT CURVE STRIP VI SCH ×4 (06:15→22:20)
[2022-08-10] MEDS: InsuLIN REG 1unit/0.01ml Soln (100units/ml) SC SCH ×4 (06:15→22:21)
[2022-08-10 06:20] LABS: Basophils # (auto) 0 10 ^3/uL (0-0.2); Basophils % (auto) 0.3 % (0.0-2.0); Eosinophils # (auto) 0.2 10 ^3/uL (0-0.8); Eosinophils % (auto) 1.5 % (0.0-7.0); Hemoglobin 12.6 g/dL (12.2-16.2); Monocytes # (auto) 1.5 10 ^3/uL (0-1.3); White Blood Cell 14.9 10^3/uL (4.4-10.8)
[2022-08-10 06:22] LABS: Hematocrit 39.8 % (36.0-46.0); Lymphocytes # (auto) 2.1 10 ^3/uL (0.4-5.4); Mean Corpuscular Hemoglobin 25.5 pg (28.0-32.0); Mean Corpuscular Hgb Conc. 31.7 g/dL (32.0-36.0); Mean Corpuscular Volume 80.6 fL (80.0-100.0); Monocytes % (auto) 10.1 % (0.0-12.0); Neutrophils % (auto) 74.1 % (37.0-80.0); Nucleated Red Blood Cells % 0.2 %; Red Blood Cells 4.95 10^6/uL (4.0-5.20); Red Cell Distribution Width 15.6 % (11.8-14.3)
[2022-08-10 06:34] LABS: Potassium 3.3 mmol/L (3.5-5.1)
[2022-08-10 06:42] LABS: Albumin 2.6 g/dL (3.4-5.0); BUN/Creatinine Ratio 11.3; Bilirubin, Total 0.4 mg/dL (0.2-1.0); Calcium 7.9 mg/dL (8.5-10.1); Total Protein 6.8 g/dL (6.4-8.2)
[2022-08-10 09:00] VITALS: BP 133/53
[2022-08-10] MEDS: cefTRIAXone 1GM/50ML D5W 50 ML IV SCH (09:19)
[2022-08-10] MEDS: SOD CHL 0.9%/ KCL 20MEQ 1,000 ML IV SCH ×2 (12:25→23:50)
[2022-08-10 17:00] VITALS: BP 145/46
[2022-08-10 20:00] VITALS: BP 147/57
[2022-08-10 22:00] VITALS: BP 147/57
[2022-08-11] MEDS: PANTOPRAZOLE 40mg/50ML NS AE 50 ML IV SCH ×2 (00:23→05:02)
[2022-08-11] MEDS: ACETAMINOPHEN 325 MG TAB PO PRN ×2 (02:24→17:00)
[2022-08-11 05:00] VITALS: BP 139/55
[2022-08-11] MEDS: metroNIDAZOLE 500MG/100ML 100 ML IV SCH ×3 (05:03→22:00)
[2022-08-11] MEDS: ACCU-CHEK COMFORT CURVE STRIP VI SCH ×4 (05:57→22:00)
[2022-08-11] MEDS: InsuLIN REG 1unit/0.01ml Soln (100units/ml) SC SCH ×4 (05:57→22:00)
[2022-08-11 06:08] LABS: Basophils # (auto) 0.1 10 ^3/uL (0-0.2); Basophils % (auto) 0.5 % (0.0-2.0); Eosinophils # (auto) 0.3 10 ^3/uL (0-0.8); Mean Corpuscular Hemoglobin 25.6 pg (28.0-32.0); Monocytes # (auto) 1.6 10 ^3/uL (0-1.3); Red Blood Cells 4.44 10^6/uL (4.0-5.20)
[2022-08-11 06:10] LABS: Eosinophils % (auto) 2.3 % (0.0-7.0); Hematocrit 35.9 % (36.0-46.0); Hemoglobin 11.3 g/dL (12.2-16.2); Lymphocytes # (auto) 2.8 10 ^3/uL (0.4-5.4); Mean Corpuscular Hgb Conc. 31.6 g/dL (32.0-36.0); Mean Corpuscular Volume 80.9 fL (80.0-100.0); Monocytes % (auto) 11.9 % (0.0-12.0); Neutrophils # (auto) 8.5 10 ^3/uL (1.6-8.6); Neutrophils % (auto) 64.3 % (37.0-80.0); Red Cell Distribution Width 15.3 % (11.8-14.3); White Blood Cell 13.3 10^3/uL (4.4-10.8)
[2022-08-11 06:23] LABS: Potassium 3.4 mmol/L (3.5-5.1)
[2022-08-11 06:25] LABS: BUN/Creatinine Ratio 7.9
[2022-08-11 09:00] VITALS: BP 172/57
[2022-08-11] MEDS: cefTRIAXone 1GM/50ML D5W 50 ML IV SCH (09:23)
[2022-08-11] MEDS: PANTOPRAZOLE 40 MG/10 ML VIAL INJ IV SCH ×2 (10:24→22:00)
[2022-08-11 13:00] VITALS: BP 145/49
[2022-08-11] MEDS: SOD CHL 0.9%/ KCL 20MEQ 1,000 ML IV SCH (13:10)
[2022-08-11 17:00] VITALS: BP 160/55
[2022-08-11 20:00] VITALS: BP 152/52
[2022-08-11 21:40] VITALS: BP 152/52
[2022-08-12] VITALS (7 sets, daily range): BP systolic 148–197; BP diastolic 43–84
[2022-08-12] MEDS: SOD CHL 0.9%/ KCL 20MEQ 1,000 ML IV SCH ×2 (02:30→21:37)
[2022-08-12] MEDS: metroNIDAZOLE 500MG/100ML 100 ML IV SCH ×3 (05:23→21:38)
[2022-08-12] MEDS: ACCU-CHEK COMFORT CURVE STRIP VI SCH ×4 (05:27→21:38)
[2022-08-12] MEDS: ACETAMINOPHEN 325 MG TAB PO PRN ×2 (05:27→22:36)
[2022-08-12] MEDS: InsuLIN REG 1unit/0.01ml Soln (100units/ml) SC SCH ×4 (05:48→21:38)
[2022-08-12 06:34] LABS: BUN/Creatinine Ratio 4.5; Potassium 3.4 mmol/L (3.5-5.1)
[2022-08-12 06:58] LABS: Basophils # (auto) 0.1 10 ^3/uL (0-0.2); Basophils % (auto) 0.7 % (0.0-2.0); Eosinophils # (auto) 0.3 10 ^3/uL (0-0.8); Hemoglobin 11.4 g/dL (12.2-16.2); Nucleated Red Blood Cells % 0.1 %
[2022-08-12 07:00] LABS: Eosinophils % (auto) 2.6 % (0.0-7.0); Hematocrit 36.1 % (36.0-46.0); Lymphocytes # (auto) 2.3 10 ^3/uL (0.4-5.4); Lymphocytes % (auto) 20.4 % (10.0-50.0); Mean Corpuscular Hemoglobin 25.8 pg (28.0-32.0); Mean Corpuscular Hgb Conc. 31.6 g/dL (32.0-36.0); Mean Corpuscular Volume 81.6 fL (80.0-100.0); Monocytes # (auto) 1.5 10 ^3/uL (0-1.3); Monocytes % (auto) 12.8 % (0.0-12.0); Neutrophils # (auto) 7.3 10 ^3/uL (1.6-8.6); Neutrophils % (auto) 63.5 % (37.0-80.0); Red Blood Cells 4.42 10^6/uL (4.0-5.20); Red Cell Distribution Width 15.5 % (11.8-14.3); White Blood Cell 11.5 10^3/uL (4.4-10.8)
[2022-08-12] MEDS ORDERED: GOLYTELY 4L KIT PO ONE (09:15)
[2022-08-12] MEDS ORDERED: POTASSIUM CHL 20 Meq TABLET PO ONE (10:00)
[2022-08-12] MEDS: PANTOPRAZOLE 40 MG/10 ML VIAL INJ IV SCH ×2 (10:46→21:38)
[2022-08-12] MEDS: cefTRIAXone 1GM/50ML D5W 50 ML IV SCH (10:46)
[2022-08-12] MEDS ORDERED: POLYETHYLENE GLYCOL 17 GM PWDR PO ONE (22:30)
[2022-08-13 05:00] VITALS: BP 134/47
[2022-08-13] MEDS: metroNIDAZOLE 500MG/100ML 100 ML IV SCH ×3 (05:03→22:19)
[2022-08-13] MEDS: SOD CHL 0.9%/ KCL 20MEQ 1,000 ML IV SCH ×2 (05:03→18:30)
[2022-08-13] MEDS ORDERED: GOLYTELY 4L KIT PO ONE (06:00)
[2022-08-13] MEDS: InsuLIN REG 1unit/0.01ml Soln (100units/ml) SC SCH ×4 (06:19→22:39)
[2022-08-13] MEDS: ACCU-CHEK COMFORT CURVE STRIP VI SCH ×4 (06:19→22:20)
[2022-08-13 07:17] LABS: Magnesium 1.9 mg/dL (1.6-2.6); Potassium 3.3 mmol/L (3.5-5.1)
[2022-08-13 07:19] LABS: BUN/Creatinine Ratio 2.6; Calcium 7.8 mg/dL (8.5-10.1)
[2022-08-13] MEDS ORDERED: diphenhdrAMINE HCL 50 MG/1 ML VL ONE (08:57)
[2022-08-13] MEDS ORDERED: MIDAZOLAM HCL 2MG/2ML 2ml VIAL (1mg/ml) ONE ×3 (08:57→15:51)
[2022-08-13] MEDS ORDERED: fentaNYL CITRATE 100 MCG/2 ML VL ONE ×2 (08:58→15:50)
[2022-08-13] MEDS: cefTRIAXone 1GM/50ML D5W 50 ML IV SCH (09:00)
[2022-08-13] MEDS: PANTOPRAZOLE 40 MG/10 ML VIAL INJ IV SCH ×2 (09:00→22:19)
[2022-08-13 09:47] VITALS: BP 140/64
[2022-08-13 14:43] VITALS: BP 152/65
[2022-08-13] MEDS ORDERED: MORPHINE SULFATE 4 MG/ML SYR/VIAL IV PRN (15:45)
[2022-08-13] MEDS ORDERED: LABETALOL HCL 5 MG/ML 4ML SYRINGE IV PRN (15:45)
[2022-08-13] MEDS ORDERED: MIDAZOLAM HCL 2MG/2ML 2ml VIAL (1mg/ml) IV PRN (15:45)
[2022-08-13] MEDS ORDERED: ePHEDrine SULFATE 50 MG/ML AMP IV PRN (15:45)
[2022-08-13] MEDS ORDERED: ONDANSETRON HCL 4 MG/2 ML VIAL IV PRN (15:45)
[2022-08-13] MEDS ORDERED: MEPERIDINE HCL (25 MG/ML) 1ML VIAL ONE (15:49)
[2022-08-13] MEDS ORDERED: PROPOFOL 10 MG/ML 20 ML IV ONE (16:05)
[2022-08-13 16:30] VITALS: BP 130/77
[2022-08-13] MEDS ORDERED: cloNIDine HCL 0.1 MG TAB PO PRN (17:30)
[2022-08-13 22:00] VITALS: BP 142/51
[2022-08-13] MEDS: MESALAMINE 400mg Delayed Release Cap PO SCH (22:16)
[2022-08-13] MEDS: methylPREDNISolone SOD SUCC 40 MG/ML VL IV SCH (22:19)
[2022-08-14] MEDS: SOD CHL 0.9%/ KCL 20MEQ 1,000 ML IV SCH (00:16)
[2022-08-14 05:00] VITALS: BP_SYST 123; BP_SYST 300; BP_DIAS 60
[2022-08-14] MEDS: MESALAMINE 400mg Delayed Release Cap PO SCH ×2 (05:57→14:57)
[2022-08-14] MEDS: metroNIDAZOLE 500MG/100ML 100 ML IV SCH ×2 (05:57→14:57)
[2022-08-14] MEDS: ACCU-CHEK COMFORT CURVE STRIP VI SCH ×3 (06:04→17:00)
[2022-08-14] MEDS: InsuLIN REG 1unit/0.01ml Soln (100units/ml) SC SCH ×3 (06:19→17:00)
[2022-08-14 09:00] VITALS: BP 165/65
[2022-08-14] MEDS: cefTRIAXone 1GM/50ML D5W 50 ML IV SCH (09:48)
[2022-08-14] MEDS: PANTOPRAZOLE 40 MG/10 ML VIAL INJ IV SCH (09:51)
[2022-08-14] MEDS: methylPREDNISolone SOD SUCC 40 MG/ML VL IV SCH (09:51)
[2022-08-14] MEDS ORDERED: METOPROLOL SUCCINATE XL 50 MG TAB PO SCH (10:00)
[2022-08-14] MEDS ORDERED: amLODIPine BESYLATE 5 MG TAB PO SCH (10:00)
[2022-08-14 13:00] VITALS: BP 153/66
[2022-08-14 15:17] VITALS: BP 153/66
== END 2022-08-14 17:16 | disposition home or self-care (01) | DRG 244 ==
LOC: ER 10:30 → OVERFLOW 17:53 → WEST WING 22:06
PROVIDERS: ADMIT Nurse Practitioner Family; ATTEND Internal Medicine Cardiovascular Disease
PROC: 05HC33Z Insertion of Infusion Device into Left Basilic Vein, Percutaneous Approach (ICD-10-PCS; 2022-08-12)
PROC: B54NZZA Ultrasonography of Left Upper Extremity Veins, Guidance (ICD-10-PCS; 2022-08-12)
PROC: 0DBN8ZX Excision of Sigmoid Colon, Via Natural or Artificial Opening Endoscopic, Diagnostic (ICD-10-PCS; 2022-08-13)
PROC: 0DBH8ZX Excision of Cecum, Via Natural or Artificial Opening Endoscopic, Diagnostic (ICD-10-PCS; 2022-08-13)
PROC: 0DBK8ZX Excision of Ascending Colon, Via Natural or Artificial Opening Endoscopic, Diagnostic (ICD-10-PCS; principal; 2022-08-13 15:45)
DX: K57.31 Diverticulosis of large intestine without perforation or abscess with bleeding (principal); E44.1 Mild protein-calorie malnutrition; E11.21 Type 2 diabetes mellitus with diabetic nephropathy; E11.40 Type 2 diabetes mellitus with diabetic neuropathy, unspecified; A03.9 Shigellosis, unspecified; B96.1 Klebsiella pneumoniae [K. pneumoniae] as the cause of diseases classified elsewhere; A09 Infectious gastroenteritis and colitis, unspecified; E11.65 Type 2 diabetes mellitus with hyperglycemia; E66.01 Morbid (severe) obesity due to excess calories; Z20.822 Contact with and (suspected) exposure to COVID-19; E78.5 Hyperlipidemia, unspecified; E87.6 Hypokalemia; I10 Essential (primary) hypertension; J45.909 Unspecified asthma, uncomplicated; N39.0 Urinary tract infection, site not specified; Z80.3 Family history of malignant neoplasm of breast; Z82.49 Family history of ischemic heart disease and other diseases of the circulatory system; Z68.41 Body mass index [BMI] 40.0-44.9, adult; Z87.19 Personal history of other diseases of the digestive system; Z83.3 Family history of diabetes mellitus; Z88.5 Allergy status to narcotic agent
CPT/HCPCS: 36415; 74176; 80048; 80053; 80061; 81001; 82270; 82962; 83036; 83735; 84443; 85025; 85610; 85730; 86850; 86900; 86901; 87045; 87086; 87088; 87186; 87426; 87427; 87493; 93971; 96365; 96366; 96367; 96375; 97116; 97163; 97530; C9113; G0378; J0696; J1815; J2250; J2704; J3490

== ENCOUNTER → 2022-08-21 | Outpatient (CLI) | payer MEDICARE, MEDICAID ==
[~2022-08-21] MED LIST changes: -FURO40TA4; -IBUP100S11 PO; +LINA5TAB PO; +READI-CAT 2 (BARIUM SULF)(VANILLA SMOOTHIE) 450ML ONE
== END | disposition home or self-care (01) ==
LOC: Rad HDHVI 15:03
PROVIDERS: ATTEND Internal Medicine Cardiovascular Disease
DX: I70.0 Atherosclerosis of aorta (principal); R10.9 Unspecified abdominal pain
CPT/HCPCS: 74176

== ENCOUNTER → 2023-12-24 | Outpatient (CLI) | payer MEDICARE, MEDICAID ==
[~2023-12-24] MED LIST changes: +AMIT50TA12 PO; -AMIT50TA5 PO; +ENAL1TAB48; -ENAL20TA8; -POTA8TAB2 PO; +POTA8TAB38 PO; -READI-CAT 2 (BARIUM SULF)(VANILLA SMOOTHIE) 450ML ONE
[2023-12-24 10:40] VITALS: BP 170/96; PULSE 69; RESP 18; O2SAT 95
[2023-12-24] MEDS: ONDANSETRON HCL 4 MG/2 ML VIAL IV ONE (10:40)
[2023-12-24] MEDS: MVI in SODIUM CHLORIDE 0.9% 500 ML IVB ONE (10:40)
[2023-12-24] MEDS: ONDANSETRON HCL 4 MG/2 ML VIAL ONE (10:58)
[2023-12-24] MEDS: MULTIPLE VIT 10 ML IV ONE (11:10)
[2023-12-24 13:32] VITALS: BP 157/74; PULSE 69; RESP 18; O2SAT 95
== END | disposition home or self-care (01) ==
LOC: Rad HDHVI 10:03
PROVIDERS: ATTEND Internal Medicine Cardiovascular Disease
DX: E86.0 Dehydration (principal); R11.0 Nausea; R53.83 Other fatigue; J45.909 Unspecified asthma, uncomplicated; I10 Essential (primary) hypertension; E11.21 Type 2 diabetes mellitus with diabetic nephropathy; E11.40 Type 2 diabetes mellitus with diabetic neuropathy, unspecified; E78.5 Hyperlipidemia, unspecified; E66.01 Morbid (severe) obesity due to excess calories; Z68.41 Body mass index [BMI] 40.0-44.9, adult
CPT/HCPCS: 93880; 96365; 96366; G0463; J2405; J7040; 96360; 96361